=== PATIENT | female | born 1975 | race Two or more races ===

== ENCOUNTER 2020-07-14 14:02 | Emergency (ER) | payer OTHER ==
[~2020-07-14] VITALS: Ht 157.5 cm; Wt 82.6 kg
[2020-07-14] MEDS ORDERED: chlordiazePOXIDE HCL 25 MG CAP PO ONE (14:45)
[2020-07-14 15:53] VITALS: BP 142/92
== END 2020-07-14 15:53 | disposition home or self-care (01) ==
LOC: ER 14:02
DX: F10.239 Alcohol dependence with withdrawal, unspecified (principal); E11.9 Type 2 diabetes mellitus without complications; I10 Essential (primary) hypertension; F17.210 Nicotine dependence, cigarettes, uncomplicated; Y90.9 Presence of alcohol in blood, level not specified